=== PATIENT | female | born 1975 | race Caucasian/White ===

== ENCOUNTER 2018-08-08 11:08 | Emergency (ER) | payer BC ==
[~2018-08-08] VITALS: Ht 160 cm; Wt 74.8 kg
--- NOTE | 2018-08-08 11:19 | ED Lower Extremity ---
General Stated Complaint: POSS CLOT IN R LEG Source: patient Exam Limitations: no limitations History of Present Illness Date Seen by Provider: Aug 08, 2018 Time Seen by Provider: 11:17 Initial Comments To ER with reports of pain to the posterior right calf for about 3 weeks. She is concerned about DVT. Her mother had a spontaneous blood clot when she was in high school. Patient denies any known injury to the leg. Does not notice any swelling but she does have pain. She is on control and was recently started on additional estrogen after falling with [facility] and being told that she had insufficient amounts of estrogen in her bladder. Onset: other Severity: moderate Pain/Injury Location: right leg Method of Injury: unknown Modifying Factors: Worse With Movement Allergies and Home Medications Allergies Coded Allergies: Acetaminophen (Verified Allergy, Unknown, 05/09/06) Hydrocodone (Verified Allergy, Unknown, 05/09/06) Oxycodone (Verified Allergy, Unknown, 05/09/06) Patient Home Medication List Home Medication List Reviewed: Yes Review of Systems Constitutional: see HPI EENTM: see HPI Respiratory: no symptoms reported Cardiovascular: no symptoms reported Genitourinary: no symptoms reported Musculoskeletal: see HPI Skin: no symptoms reported Psychiatric/Neurological: No Symptoms Reported Past Pdvzqrv-Vyique-Nfsvmz Hx Patient Social History Recent Foreign Travel: No Contact w/Someone Who Travel: No Physical Exam Vital Signs Vital Signs - First Documented 08/08/18 08/08/18 11:11 11:58 Temp 97.5 Pulse 66 Resp 18 B/P (MAP) 168/111 (130) Pulse Ox 99 O2 Delivery Room Air Capillary Refill : Height, Weight, BMI Height: '" Weight: lbs. oz. kg; BMI Method: General Appearance: WD/WN, no apparent distress HEENT: PERRL/EOMI, normal ENT inspection Neck: non-tender, full range of motion Respiratory: no respiratory distress, no accessory muscle use Hips: bilateral hip non-tender, bilateral hip normal inspection, bilateral hip normal range of motion Legs: right leg pain, right leg soft tissue tenderness, right leg other (no swelling or erythema) Knees: bilateral knee non-tender, bilateral knee normal inspection, bilateral knee normal range of motion Ankles: bilateral ankle non-tender, bilateral ankle normal inspection, bilateral ankle normal range of motion Feet: bilateral foot non-tender, bilateral foot normal inspection, bilateral foot normal range of motion Neurologic/Psychiatric: alert, normal mood/affect, oriented x 3 Skin: normal color, warm/dry Progress/Results/Core Measures Results/Orders My Orders Orders - NIKHIL STEWART APRN Venous Lower Ext Rt (08/08/18 11:16) Vital Signs/I&O 08/08/18 08/08/18 11:11 11:58 Temp 97.5 Pulse 66 66 Resp 18 18 B/P (MAP) 168/111 (130) 132/88 (103) Pulse Ox 99 98 O2 Delivery Room Air Departure Impression Primary Impression: Muscle strain, lower leg Disposition: HOME, SELF-CARE Condition: Stable Departure-Patient Inst. Decision time for Depature: 12:36 Referrals: MARYELLEN FRANCO MD (PCP/Family) Primary Care Physician Patient Instructions: Lower Extremity Muscle Strain Add. Discharge Instructions: 1. Return to ER for any concerns 2. Follow-up with your doctor next week Tylenol Motrin for pain. NIKHIL STEWART APRN Aug 08, 2018 11:19
--- OUTSIDE RECORDS SUMMARY | 2018-08-08 11:19 | XMS REPORT | Continuity of Care Document ---
Demographics Preferred Language Unknown Marital Status Unknown Synagogue Affiliation Unknown Race Unknown Ethnic Group Unknown Author Author Formerly [facility] Address Unknown Phone Unavailable Allergies Active Description Code Type Severity Reaction Onset Reported/Identified Relationship to Patient Clinical Status Yes acetaminophen [id number] Drug Allergy Unknown N/A 05/09/2006 Yes hydrocodone [id number] Drug Allergy Unknown N/A 05/09/2006 Yes oxycodone [id number] Drug Allergy Unknown N/A 05/09/2006 Medications There is no data. Problems Date Dx Coded Attending Type Code Diagnosis Diagnosed By 01/19/2012 Ot 599.0 01/19/2012 Ot 780.79 10/14/2012 V04.81 FLU DX (3 YRS AND ABOVE, IM) 10/14/2012 V06.1 TDAP DX 12/27/2015 Ot 599.0 12/27/2015 Ot 780.79 12/27/2015 Ot V76.12 12/28/2015 Ot 599.0 12/28/2015 Ot 780.79 12/28/2015 Ot V76.12 01/01/2016 JOAN CLARKE, MARYELLEN Sandoval Ot M25.572 01/15/2016 JOAN CLARKE, MARYELLEN Sandoval Ot M25.572 02/12/2016 MARYELLEN FRANCO MD Ot M25.572 02/12/2016 JOAN CLARKE, MARYELLEN Sandoval Ot M79.672 Procedures There is no data. Results There is no data. Encounters ACCT No. Visit Date/Time Discharge Status Pt. Type Provider Facility Loc./Unit Complaint [id number] 10/14/2012 16:08:00 10/14/2012 23:59:59 CLS Outpatient [id number] 11/04/2016 19:55:13 11/04/2016 19:55:13 DIS Unknown [id number] 07/31/2018 11:38:00 07/31/2018 23:59:59 CLS Preadmit WHITNEY OROPEZA APRN [facility] RAD SCREENING [id number] 01/02/2016 12:06:00 01/02/2016 23:59:59 CLS Outpatient MARYELLEN FRANCO MD [facility] CARD [id number] 12/28/2015 14:08:00 12/28/2015 23:59:59 CLS Outpatient MARYELLEN FRANCO MD [facility] RAD [id number] 12/21/2013 15:16:00 12/21/2013 23:59:59 CLS Outpatient [id number] 06/25/2012 08:07:00 Document Registration [id number] 01/20/2012 00:00:00 Document Registration [id number] 10/21/2011 12:14:00 Document Registration
[2018-08-08] MEDS ORDERED: ESTROGEN (11:37)
[2018-08-08 11:58] VITALS: BP 132/88
[2018-08-08 12:44] VITALS: BP 132/88
--- NOTE | 2018-08-08 12:58 | Diagnostic Imaging Report ---
PROCEDURE: US right lower extremity venous. TECHNIQUE: Multiple real-time grayscale images were obtained over the right lower extremity in various projections. Additional duplex Doppler and color Doppler images were also obtained. INDICATION: Leg pain and swelling COMPARISON: There are no prior studies available for comparison. FINDINGS: There is generally good blood flow and compressibility at all levels. There is no sign of a deep venous thrombosis. IMPRESSION: There is no evidence for a deep venous thrombosis of the left lower extremity. Dictated by: Dictated on workstation # [id number]
== END 2018-08-08 12:44 | disposition home or self-care (01) ==
LOC: EDUNIT# 11:08 → ER 11:09
DX: S86.911A Strain of unspecified muscle(s) and tendon(s) at lower leg level, right leg, initial encounter (principal); M79.604 Pain in right leg; Z88.5 Allergy status to narcotic agent; Z88.8 Allergy status to other drugs, medicaments and biological substances; X58.XXXA Exposure to other specified factors, initial encounter
CPT/HCPCS: 99283

== ENCOUNTER → 2018-08-19 | Outpatient (CLI) | payer BC ==
[~2018-08-19] MED LIST: ESTROGEN
--- NOTE | 2018-08-19 09:10 | Diagnostic Imaging Report ---
INDICATION: Screening. TECHNIQUE: The current study was also evaluated with a Computer Aided Detection (CAD) system. 3D tomosynthesis was also performed and reviewed. COMPARISON: 06/25/2012. FINDINGS: There are scattered fibroglandular densities bilaterally. There are a few benign type calcifications. There is no dominant mass, spiculated lesion, or suspicious calcification identified. The skin, nipples, and axillae are unremarkable. IMPRESSION: Benign findings. ACR BI-RADS Category 2: Benign findings. Result letter will be mailed to the patient. Note: At least 10% of breast cancer is not imaged by mammography. Dictated by: Dictated on workstation # [id number]
== END ==
LOC: RAD 07:34
PROVIDERS: ATTEND Nurse Practitioner Family
DX: Z12.31 Encounter for screening mammogram for malignant neoplasm of breast (principal)
CPT/HCPCS: 77067

== ENCOUNTER → 2020-08-01 | Outpatient (CLI) | payer BC ==
--- NOTE | 2020-08-01 13:46 | Diagnostic Imaging Report ---
PROCEDURE: CT urinary tract, rule out kidney stone. TECHNIQUE: Multiple contiguous axial images were obtained through the abdomen and pelvis without the use of intravenous contrast. Auto Exposure Controls were utilized during the CT exam to meet ALARA standards for radiation dose reduction. INDICATION: Right-sided flank pain with history of chronic urinary tract infections. COMPARISON: No prior studies are available for comparison. FINDINGS: The lung bases are clear. The liver and gallbladder are unremarkable. No biliary ductal dilatation is seen. The pancreas and spleen are unremarkable. No adrenal mass is detected. No definite renal calculi are detected. No definite ureteral calculi or hydronephrosis is identified. Aorta is non-aneurysmal. Bowel loops are normal caliber. There is no bowel obstruction. No inflammatory changes are seen. The uterus is unremarkable. No free fluid or fluid collection is detected. IMPRESSION: Unremarkable noncontrast CT of the abdomen and pelvis. No urinary tract calculi or obstruction is detected. Dictated by: Dictated on workstation # [id number]
== END ==
LOC: RAD 13:13
PROVIDERS: ATTEND Nurse Practitioner Family
DX: Z29.8 Encounter for other specified prophylactic measures (principal); N30.00 Acute cystitis without hematuria; N15.9 Renal tubulo-interstitial disease, unspecified; R19.8 Other specified symptoms and signs involving the digestive system and abdomen; Z87.440 Personal history of urinary (tract) infections; Z87.442 Personal history of urinary calculi
CPT/HCPCS: 74176

== ENCOUNTER 2021-11-01 17:24 | Emergency (ER) | payer BC ==
[~2021-11-01] VITALS: Ht 167 cm; Wt 74.0 kg
[2021-11-01 17:28] VITALS: BP 172/149
--- NOTE | 2021-11-01 17:38 | ED Chest Pain ---
General Chief Complaint: Chest Pain Stated Complaint: ELEVATED BP, CP,DIZZINESS,NAUSEA,HEADACHE Nursing Triage Note: ARRIVED VIA AMB WITH COMPLAINTS OF CHEST PAIN X2. STATES IT IS WORSE TODAY. DESCRIBES AT CRUSHING. SENT OVER FROM [facility]. Source: patient Exam Limitations: no limitations (NIKHIL STEWART APRN) History of Present Illness Date Seen by Provider: Nov 01, 2021 Time Seen by Provider: 17:35 Initial Comments To ER with reports of chest pain sure and squeezing for 2 to 3 days. She was seen at urgent care and referred here. She had an EKG done there and was given aspirin. She does report a history of hyperlipidemia not currently on medication for it but states that she is supposed to be. She is a non-smoker. History of hypertension controlled with diet and lifestyle changes. She does report a lot of stress over the past few days related to family issues. He has 0.25 mg alprazolam tablets at home but does not like taking them so she took half of 1. Timing/Duration: 2-3 days Severity/Quality: moderate Location: central Radiation: no radiation Activities at Onset: none ASA po GANG HEMSTITCHING MACHINE OPERATOR: No NTG SL GANG HEMSTITCHING MACHINE OPERATOR: No Associated Symptoms: denies symptoms (NIKHIL STEWART APRN) Allergies and Home Medications Allergies Coded Allergies: Acetaminophen (Verified Allergy, Unknown, 05/09/06) Hydrocodone (Verified Allergy, Unknown, 05/09/06) Oxycodone (Verified Allergy, Unknown, 05/09/06) Patient Home Medication List Home Medication List Reviewed: Yes (NIKHIL STEWART APRN) Lisinopril (Lisinopril) 10 Mg Tablet, 10 MG PO DAILY Prescribed by: NIKHIL STEWART on 11/01/211914 Last Action: New Order [Estrogen] , (Reported) Entered as Reported by: ROMEO WILHELM on 08/08/18 1137 Review of Systems Review of Systems Constitutional: see HPI EENTM: No Symptoms Reported Respiratory: See HPI Cardiovascular: See HPI, Chest Pain Gastrointestinal: No Symptoms Reported Genitourinary: No Symptoms Reported Musculoskeletal: no symptoms reported Skin: no symptoms reported Psychiatric/Neurological: No Symptoms Reported Endocrine: No Symptoms Reported Hematologic/Lymphatic: No Symptoms Reported (NIKHIL STEWART APRN) Past Jivuceu-Cylsox-Jordvr Hx Past Medical History Surgeries: No Respiratory: No Cardiac: No Neurological: No Last Menstrual Period: Oct 25, 2021 Genitourinary: Yes UTI-Chronic Gastrointestinal: No Musculoskeletal: No Endocrine: No HEENT: No Cancer: No Psychosocial: No Integumentary: No (NIKHIL STEWART APRN) Physical Exam Vital Signs Vital Signs - First Documented 11/01/21 17:28 Temp 36.3 Pulse 89 Resp 16 B/P (MAP) 172/149 (157) Pulse Ox 99 O2 Delivery Room Air (ROSA WHITLEY DO) Vital Signs Capillary Refill : Less Than 3 Seconds (NIKHIL STEWART APRN) Height, Weight, BMI Height: 5'3.00" Weight: 165lbs. oz. 74.862720px; 26.00 BMI Method:Stated General Appearance: No Apparent Distress, WD/WN, Anxious HEENT: PERRL/EOMI Neck: Full Range of Motion Respiratory: No Accessory Muscle Use, No Respiratory Distress Cardiovascular: Regular Rate, Rhythm, Normal Peripheral Pulses Gastrointestinal: Normal Bowel Sounds, Non Tender, Soft Extremity: Normal Capillary Refill, Normal Inspection Neurologic/Psychiatric: Alert, Oriented x3 Skin: Normal Color, Warm/Dry (NIKHIL STEWART APRN) Progress/Results/Core Measures Results/Orders Lab Results Laboratory Tests Test 11/01/21 17:40 Range/Units White Blood Count 7.4 4.3-11.0 10^3/uL Red Blood Count 4.78 3.80-5.11 10^6/uL Hemoglobin 15.0 11.5-16.0 g/dL Hematocrit 45 35-52 % Mean Corpuscular Volume 93 80-99 fL Mean Corpuscular Hemoglobin 31 25-34 pg Mean Corpuscular Hemoglobin Concent 34 32-36 g/dL Red Cell Distribution Width 12.9 10.0-14.5 % Platelet Count 297 130-400 10^3/uL Mean Platelet Volume 9.9 9.0-12.2 fL Immature Granulocyte % (Auto) 0 % Neutrophils (%) (Auto) 66 42-75 % Lymphocytes (%) (Auto) 26 12-44 % Monocytes (%) (Auto) 7 0-12 % Eosinophils (%) (Auto) 1 0-10 % Basophils (%) (Auto) 1 0-10 % Neutrophils # (Auto) 4.9 1.8-7.8 10^3/uL Lymphocytes # (Auto) 1.9 1.0-4.0 10^3/uL Monocytes # (Auto) 0.5 0.0-1.0 10^3/uL Eosinophils # (Auto) 0.0 0.0-0.3 10^3/uL Basophils # (Auto) 0.0 0.0-0.1 10^3/uL Immature Granulocyte # (Auto) 0.0 0.0-0.1 10^3/uL Prothrombin Time 13.3 12.2-14.7 SEC INR Comment 1.0 0.8-1.4 Activated Partial Thromboplast Time 30 24-35 SEC D-Dimer < 0.27 0.00-0.49 UG/ML Sodium Level 138 135-145 MMOL/L Potassium Level 3.6 3.6-5.0 MMOL/L Chloride Level 102 98-107 MMOL/L Carbon Dioxide Level 26 21-32 MMOL/L Anion Gap 10 5-14 MMOL/L Blood Urea Nitrogen 18 7-18 MG/DL Creatinine 0.82 0.60-1.30 MG/DL Estimat Glomerular Filtration Rate 75 BUN/Creatinine Ratio 22 Glucose Level 89 70-105 MG/DL Calcium Level 9.1 8.5-10.1 MG/DL Corrected Calcium 9.3 8.5-10.1 MG/DL Magnesium Level 1.9 1.6-2.4 MG/DL Total Bilirubin 0.3 0.1-1.0 MG/DL Aspartate Amino Transf (AST/SGOT) 16 5-34 U/L Alanine Aminotransferase (ALT/SGPT) 18 0-55 U/L Alkaline Phosphatase 62 40-136 U/L Myoglobin 39.4 10.0-92.0 NG/ML Troponin I < 0.028 <0.028 NG/ML B-Type Natriuretic Peptide < 10.0 <100.0 PG/ML Total Protein 6.8 6.4-8.2 GM/DL Albumin 3.8 3.2-4.5 GM/DL ([place],ROSA Beatsy ) Vital Signs/I&O 11/01/21 17:28 Temp 36.3 Pulse 89 Resp 16 B/P (MAP) 172/149 (157) Pulse Ox 99 O2 Delivery Room Air (HENRIEVILLEOsmosisA Beatsy ) Blood Pressure Mean: 157 Departure Communication (Admissions) EKG shows sinus rhythm at 72 with normal intervals no ectopy and no ST segment changes (NIKHIL STEWART APRN) Impression Primary Impression: Chest pain Additional Impressions: Stress Hypertension Disposition: 01 HOME, SELF-CARE Condition: Stable Departure-Patient Inst. Decision time for Depature: 18:54 (NIKHIL STEWART APRN) Referrals: MARYELLEN FRANCO MD (PCP/Family) Primary Care Physician Patient Instructions: High Blood Pressure (DC) Add. Discharge Instructions: 1. Medication as directed. Follow-up with primary care within about 2 to 3 weeks to evaluate the effect of the blood pressure medication. The dose may need to be adjusted return to ER for any concerns. If you feel anxious, take a whole Xanax, this 0.25 mg is a very very low dose and as you have found, half of one is of no value. All discharge instructions reviewed with patient and/or family. Voiced understanding. Scripts Lisinopril (Lisinopril) 10 Mg Tablet 10 MG PO DAILY, #30 TAB . Prov: NIKHIL STEWART APRN 11/01/21 ATTENDING PHYSICIAN NOTE: I WAS PHYSICALLY PRESENT ER PHYSICIAN WHEN THIS PATIENT WAS IN ER, BUT I WAS NOT INVOLVED IN ANY DECISION MAKING OR ANY CARE OF THIS PATIENT. (ROSA WHITLEY DO) NIKHIL STEWART APRN Nov 01, 2021 17:38 ROSA WHITLEY DO Nov 03, 2021 12:38
[2021-11-01 17:49] LABS: BASOPHILS % (AUTO) 1 % (0-10); EOSINOPHILS % (AUTO) 1 % (0-10); HEMATOCRIT 45 % (35-52); LYMPHOCYTES # (AUTO) 1.9 10^3/uL (1.0-4.0); LYMPHOCYTES % (AUTO) 26 % (12-44); MEAN CORPUSCULAR HEMOGLOBIN 31 pg (25-34); MEAN CORPUSCULAR HGB CONC 34 g/dL (32-36); MEAN CORPUSCULAR VOLUME 93 fL (80-99); MEAN PLATELET VOLUME 9.9 fL (9.0-12.2); MONOCYTES # (AUTO) 0.5 10^3/uL (0.0-1.0); MONOCYTES % (AUTO) 7 % (0-12); NEUTROPHILS # (AUTO) 4.9 10^3/uL (1.8-7.8); NEUTROPHILS % (AUTO) 66 % (42-75); PLATELET COUNT 297 10^3/uL (130-400); WHITE BLOOD COUNT 7.4 10^3/uL (4.3-11.0)
[2021-11-01 17:56] LABS: ALBUMIN 3.8 GM/DL (3.2-4.5); POTASSIUM 3.6 MMOL/L (3.6-5.0)
[2021-11-01 17:57] LABS: CALCIUM 9.1 MG/DL (8.5-10.1)
[2021-11-01 17:59] LABS: TOTAL PROTEIN 6.8 GM/DL (6.4-8.2)
[2021-11-01 18:01] LABS: BILIRUBIN,TOTAL 0.3 MG/DL (0.1-1.0)
[2021-11-01 18:02] LABS: CREATININE SERUM 0.82 MG/DL (0.60-1.30)
[2021-11-01 18:05] LABS: MAGNESIUM 1.9 MG/DL (1.6-2.4)
--- NOTE | 2021-11-01 18:39 | Diagnostic Imaging Report ---
INDICATION: Chest pain. COMPARISON: None available. TECHNIQUE: Single radiograph of the chest dated November 01, 2021. FINDINGS: The cardiac silhouette is within normal limits in size. No significant pulmonary vascular congestion. The lungs appear mildly hyperinflated, though clear of focal pulmonary opacity. No pleural effusion. No pneumothorax. No acute osseous abnormality. IMPRESSION: Mild pulmonary hyperinflation without superimposed acute cardiopulmonary abnormality. Dictated by: Dictated on workstation # [id number]
[2021-11-01 18:49] LABS: PARTIAL THROMBOPLASTIN TIME 30 SEC (24-35); PROTHROMBIN TIME PATIENT 13.3 SEC (12.2-14.7)
[2021-11-01 18:52] LABS: FIBRIN DEGRADATION PRODUCTS < 0.27 UG/ML (0.00-0.49)
[2021-11-01] MEDS ORDERED: lisINopril 10 MG (PRINIVIL) TABLET PO ONE (19:00)
[2021-11-01] MEDS ORDERED: LISI10TA25 PO ×2 (19:13→19:15)
== END 2021-11-01 19:16 | disposition home or self-care (01) ==
LOC: EDUNIT# 17:24 → ER 17:26
DX: R07.9 Chest pain, unspecified (principal); F43.9 Reaction to severe stress, unspecified; I10 Essential (primary) hypertension
CPT/HCPCS: 36415; 71045; 80053; 83735; 83874; 83880; 84484; 85025; 85379; 85610; 85730; 93041

== ENCOUNTER → 2023-09-02 | Outpatient (CLI) | payer BC ==
[~2023-09-02] MED LIST changes: +LISI10TA25 PO
--- NOTE | 2023-09-02 12:36 | Diagnostic Imaging Report ---
EXAMINATION: CT head without contrast. TECHNIQUE: Multiple contiguous axial images were obtained through the brain without the use of intravenous contrast. All CT scans use one or more of the following dose optimizing techniques: Automated exposure control, MA and/or KvP adjustment based on patient size and exam type or iterative reconstruction. HISTORY: Hit head three weeks ago. Recurrent headaches. Concussion. COMPARISON: None available. FINDINGS: No large acute territorial ischemia, mass, or hemorrhage. No midline shift or mass effect. The ventricles, cortical sulci, and basilar cisterns are patent and unremarkable. The orbits are normal. Paranasal sinuses are normal. Mastoid air cells are clear. No soft tissue abnormality is seen. No osseous lesions or fractures are seen. IMPRESSION: 1. No large acute territorial ischemia, mass, or hemorrhage. Dictated by: Dictated on workstation # [id number]
== END ==
LOC: RAD 12:04
PROVIDERS: ATTEND Nurse Practitioner Family
DX: S06.0X0A Concussion without loss of consciousness, initial encounter (principal); G44.89 Other headache syndrome; R41.3 Other amnesia; R41.840 Attention and concentration deficit; F41.1 Generalized anxiety disorder; J30.89 Other allergic rhinitis; N30.20 Other chronic cystitis without hematuria
CPT/HCPCS: 70450